=== PATIENT | female | born 1990 | race Caucasian/White ===

== ENCOUNTER 2016-03-22 00:58 | Emergency (ER) | payer OTHER ==
[~2016-03-22] VITALS: Ht 170.2 cm; Wt 125.5 kg
[~2016-03-22 00:58] MED LIST: ANUSOL HC CREAM30 GM TP; ANUSOL-HC SUPPO25 MG RC; CELEXA 20MG20 MG/TAB; CRUTCHES; DEPO-PROVER150 MG/M1; LEXAPRO20 MG PO; NORCO 325 MG-51 TAB PO
[2016-03-22 01:02] VITALS: TEMP 98.1
[2016-03-22 02:32] LABS: INFLUENZA B NEGATIVE
[2016-03-22] MEDS ORDERED: AMOXICILLIN 8751 TAB PO (02:57)
[2016-03-22 03:14] VITALS: BP 133/86; PULSE 87
[2016-03-22] MEDS ORDERED: LAMICTAL200 MG PO (03:20)
[2016-03-22] MEDS ORDERED: CELEXA40 MG PO (03:21)
== END 2016-03-22 03:30 | disposition home or self-care (01) ==
LOC: COL.ER 00:58
PROVIDERS: Physician Assistant
DX: J06.9 Acute upper respiratory infection, unspecified (principal); J32.9 Chronic sinusitis, unspecified; F17.210 Nicotine dependence, cigarettes, uncomplicated
CPT/HCPCS: J1885; J2405; J7030